=== PATIENT | female | born 1975 | race Hispanic/Latino ===

== ENCOUNTER 2022-12-08 14:57 | Emergency (ER) | payer OTHER ==
[~2022-12-08] VITALS: Ht 157.5 cm; Wt 81.6 kg
[2022-12-08] MEDS ORDERED: ACETAMINOPHEN WITH CODEINE 1 TAB TAB PO ONE (16:30)
[2022-12-08 16:57] LABS: APPEARANCE,URINE CLEAR (CLEAR); BILIRUBIN,URINE NEGATIVE (NEGATIVE); COLOR,URINE YELLOW (YELLOW); GLUCOSE, URINE (UA) >=1000 mg/dL (NEGATIVE); KETONES,URINE NEGATIVE (NEGATIVE); LEUKOCYTE ESTERASE ,URINE NEGATIVE Leu/uL (NEGATIVE); NITRATE,URINE NEGATIVE (NEGATIVE); OCCULT BLOOD,URINE TRACE-INTACT (NEGATIVE); PROTEIN,URINE >=300 mg/dL (NEGATIVE); UROBILINOGEN,URINE 0.2 mg/dL (0.2-1.0)
[2022-12-08 17:07] LABS: BACTERIA,URINE None Seen /HPF (None Seen); MUCUS,URINE None Seen LPF (None Seen); RBC,URINE 0-1 /HPF (0-1); SQUAMOUS EPITHELIAL CELL,UR None Seen /HPF (0-2); WBC,URINE 0-1 /HPF (0-1)
[2022-12-08 17:07] LABS: BASOPHILS % (AUTO) 0.3 % (0.0-5.0); EOSINOPHILS % (AUTO) 8.1 % (0.0-8.0); HEMATOCRIT 35.5 % (36-48); MEAN CORPUSCULAR HEMOGLOBIN 26.7 pg (27.0-33.0); MEAN CORPUSCULAR HGB CONC 32.4 g/dL (32.0-36.0); MEAN CORPUSCULAR VOLUME 82.6 fL (79-99); MONOCYTES % (AUTO) 4.5 % (3.0-13.0); NEUTROPHILS % (AUTO) 71.4 % (40.0-77.0); PLATELET COUNT (AUTO) 444 K/uL (130-400); RED CELL DISTRIBUTION WIDTH 13.7 % (11.0-15.5); WHITE BLOOD COUNT (AUTO) 17.4 K/uL (4.8-10.8)
[2022-12-08 17:18] LABS: INR 0.93 (0.85-1.15); PROTHROMBIN TIME 9.7 SEC (9.6-11.6)
[2022-12-08 17:19] LABS: CREATININE 0.9 mg/dL (0.5-1.5); PARTIAL THROMBOPLASTIN TIME 28.5 SEC (26.3-35.5); POTASSIUM 4.2 mmol/L (3.5-5.1)
[2022-12-08 17:21] LABS: ALBUMIN 2.4 g/dL (3.5-5.0); TOTAL PROTEIN, SERUM 7.5 g/dL (6.0-8.3)
[2022-12-08] MEDS ORDERED: ORPHENADRINE CITRATE 30 MG/ML ML IM ONE (17:30)
[2022-12-08 18:22] VITALS: BP 131/60
[2022-12-08] MEDS ORDERED: CLIN-141 PO (18:26)
[2022-12-08] MEDS ORDERED: CYCL10TA16 PO (18:26)
== END 2022-12-08 18:32 | disposition home or self-care (01) ==
LOC: EDH 14:57
DX: L03.116 Cellulitis of left lower limb (principal); E11.65 Type 2 diabetes mellitus with hyperglycemia; E78.00 Pure hypercholesterolemia, unspecified; I10 Essential (primary) hypertension; Z86.718 Personal history of other venous thrombosis and embolism
CPT/HCPCS: 99285; 93971; 82550; 80053; 85025; 85610; 85730; 81001; 36415; 73590; 96372; J2360